=== PATIENT | female | born 2000 | race Two or more races ===

== ENCOUNTER 2022-07-13 13:29 | Emergency (ER) | payer SELFPAY ==
[2022-07-13] MEDS ORDERED: Ondansetron 4 MG/2 ML SDV IVPUSH ONE (14:23)
[2022-07-13] MEDS ORDERED: Sodium Chloride 0.9% 1,000 ML IV ONE (14:23)
[2022-07-13] MEDS ORDERED: Ketorolac 30 MG/ML SDV IVPUSH ONE (14:23)
[2022-07-13 15:13] LABS: CARBON DIOXIDE,CO2 27.9 mmol/L (21.0-32.0); POTASSIUM,K 3.8 mmol/L (3.5-5.1)
== END 2022-07-13 17:59 | disposition home or self-care (01) ==
LOC: MW.ED 13:29
DX: N30.00 Acute cystitis without hematuria (principal)
CPT/HCPCS: 36415; 76856; 80053; 81001; 81025; 85025; 87086; 96361; 96374; 96375; 99284; J1885; J2405; J7030

== ENCOUNTER 2024-02-29 04:32 | Inpatient (IN) | payer MEDICAID ==
[2024-02-29] MEDS ORDERED: Methylergonovine 0.2 MG/1 ML Amp IM PRN ×2 (09:09→18:50)
[2024-02-29] MEDS ORDERED: Lidocaine 1% 50 ML MDV INJECT PRN (09:09)
[2024-02-29] MEDS ORDERED: Butorphanol 2 MG/ML SDV IVPUSH PRN (09:09)
[2024-02-29] MEDS ORDERED: Sodium Chloride 0.9% 10 ML Syringe FLUSH PRN (09:09)
[2024-02-29] MEDS ORDERED: Carboprost Tromethamine 250 MCG/1 mL Vial IM PRN (09:09)
[2024-02-29] MEDS ORDERED: Sodium Chloride 0.9% 2.5 ML Syringe FLUSH PRN (09:09)
[2024-02-29] MEDS ORDERED: Misoprostol 200 MCG Tab PO PRN (09:09)
[2024-02-29] MEDS ORDERED: Tranexamic Acid IN NACL,ISO-OS 1,000 MG in Premix Bag 1 BAG IV PRN ×2 (09:09→18:50)
[2024-02-29] MEDS ORDERED: Water For Irrigation,Sterile 1,000 ML Container IRR PRN (09:09)
[2024-02-29] MEDS ORDERED: Sodium Chloride 0.9% 20 ML SDV IV PRN (09:09)
[2024-02-29] MEDS ORDERED: Oxytocin/0.9 % Sodium Chloride 30 UNIT/500 ML BAG IV SCH (09:15)
[2024-02-29] MEDS: Lactated Ringers 1,000 ML IV SCH (09:35)
[2024-02-29] MEDS ORDERED: Phenylephrine HCl In 0.9% NaCl 1 MG/10 ML Syringe ONE (10:10)
[2024-02-29] MEDS ORDERED: Bupivacaine 0.5% 10 ML SDV ONE (10:10)
[2024-02-29 10:11] LABS: HEMATOCRIT 32.3 % (37.0-47.0); MEAN CORPUSCULAR HEMOGLOBIN 30.1 pg (28.0-32.0); MEAN CORPUSCULAR HGB CONC 34.1 g/dL (32.0-36.0); MEAN CORPUSCULAR VOLUME 88.5 fL (83.0-99.0); MEAN PLATELET VOLUME 11.8 fL (9.4-12.3); PLATELET COUNT,PLT 197 K/uL (150-400); RED BLOOD CELL COUNT 3.65 M/uL (4.10-5.30); WHITE BLOOD CELL COUNT,WBC 9.02 K/uL (3.9-11.3)
[2024-02-29] MEDS: Ropivacaine HCl/PF 200 ML ONE (10:25)
[2024-02-29] MEDS: Ropivacaine HCl/PF 400 MG in Premix Bag 1 BAG EPIDUR SCH (10:25)
[2024-02-29] MEDS ORDERED: ePHEDrine 50 MG/ML SDV IM PRN (10:32)
[2024-02-29] MEDS ORDERED: Bupivacaine 0.5% 10 ML SDV INJECT ONE (10:32)
[2024-02-29] MEDS ORDERED: ePHEDrine 50 MG/ML SDV IVPUSH PRN ×2 (10:32)
[2024-02-29] MEDS ORDERED: Phenylephrine HCl In 0.9% NaCl 1 MG/10 ML Syringe IVPUSH PRN (10:32)
[2024-02-29] MEDS: Ondansetron 4 MG/2 ML SDV IVPUSH PRN (15:07)
[2024-02-29] MEDS: Oxytocin/0.9 % Sodium Chloride 30 UNIT/500 ML BAG IV SCH (17:37)
[2024-02-29] MEDS ORDERED: Docusate Sodium 100 MG Cap PO PRN (18:50)
[2024-02-29] MEDS ORDERED: Lanolin 100% Cream 7 GM Tube TOP PRN (18:50)
[2024-02-29] MEDS ORDERED: Misoprostol 200 MCG Tab RECTAL PRN (18:50)
[2024-02-29 19:42] LABS: PH,UMBILICAL ARTERIAL 7.228 (7.18-7.38)
[2024-02-29 19:43] LABS: PH,UMBILICAL VENOUS 7.33 (7.25-7.45)
[2024-02-29] MEDS: Witch Hazel Medicated Pads 40/Jar TOP PRN (21:01)
[2024-02-29] MEDS: Benzocaine/Menthol 20%-0.5% Spray 78 GM Cannister TOP PRN (21:09)
[2024-02-29] MEDS: Ibuprofen 800 MG Tab PO PRN (21:30)
[2024-02-29] MEDS: Acetaminophen 500 MG Tab PO PRN (21:30)
[2024-03-01 05:47] LABS: HEMATOCRIT 30.7 % (37.0-47.0); HEMOGLOBIN 10.4 g/dL (12.0-16.0)
[2024-03-01] MEDS: Prenatal Multivitamin with Calcium/Folic Acid/Iron Tab PO SCH (14:56)
== END 2024-03-01 21:10 | disposition home or self-care (01) | DRG 807 ==
LOC: MW.OBCHECK 04:32 → MW.OB 09:09 → OBSVTOIN 18:00 → MW.OB 21:30
PROVIDERS: ADMIT Obstetrics & Gynecology; ATTEND Obstetrics & Gynecology
PROC: 10E0XZZ Delivery of Products of Conception, External Approach (ICD-10-PCS; principal; 2024-02-29)
PROC: 10907ZC Drainage of Amniotic Fluid, Therapeutic from Products of Conception, Via Natural or Artificial Opening (ICD-10-PCS; 2024-02-29)
PROC: 3E0R3BZ Introduction of Anesthetic Agent into Spinal Canal, Percutaneous Approach (ICD-10-PCS; 2024-02-29)
PROC: 00HU33Z Insertion of Infusion Device into Spinal Canal, Percutaneous Approach (ICD-10-PCS; 2024-02-29)
PROC: 0UQG7ZZ Repair Vagina, Via Natural or Artificial Opening (ICD-10-PCS; 2024-02-29)
DX: O48.0 Post-term pregnancy (principal); Z37.0 Single live birth; O71.89 Other specified obstetric trauma; Z3A.39 39 weeks gestation of pregnancy; Z3A.40 40 weeks gestation of pregnancy
CPT/HCPCS: 36415; 51702; 59025; 59409; 82803; 85014; 85018; 85027; 86592; 86850; 86900; 86901; A9270-GY; J0665; J2371; J2405; J2590; J2795; J7120

== ENCOUNTER 2025-04-17 16:56 | Emergency (ER) | payer MEDICAID ==
[2025-04-17 17:23] LABS: BASOPHILS ABSOLUTE AUTO 0.01 K/uL (0.00-0.20); BASOPHILS PERCENT AUTO 0.2 % (0.0-1.0); EOSINOPHILS ABSOLUTE AUTO 0.02 K/uL (0.00-0.45); EOSINOPHILS PERCENT AUTO 0.3 % (0.0-6.0); IMMATURE GRAN ABSOLUTE AUTO 0.01 K/uL (0.00-0.05); IMMATURE GRAN PERCENT AUTO 0.2 % (0.0-0.4); LYMPHOCYTES ABSOLUTE AUTO 1.88 K/uL (1.00-4.80); LYMPHOCYTES PERCENT AUTO 31.2 % (24.0-44.0); MEAN PLATELET VOLUME 11.4 fL (9.4-12.3); MONOCYTES ABSOLUTE AUTO 0.38 K/uL (0.00-0.80); MONOCYTES PERCENT AUTO 6.3 % (0.0-8.0); NEUTROPHILS ABSOLUTE AUTO 3.73 K/uL (1.80-7.70); NEUTROPHILS PERCENT AUTO 61.8 % (41.0-71.0); NRBC ABSOLUTE 0.00 K/uL (0.00-0.02); NRBC PERCENT 0.0 /100WBC (0.0-0.2); PLATELET COUNT,PLT 215 K/uL (150-400); RED BLOOD CELL COUNT 4.56 M/uL (4.10-5.30); WHITE BLOOD CELL COUNT,WBC 6.03 K/uL (3.9-11.3)
[2025-04-17 17:54] LABS: A/G RATIO 0.9 (0.9-1.6); ALANINE AMINOTRANSFERASE,ALT 11 IU/L (14-63); ASPARTATE AMNIOTRANSFERASE,AST 13 IU/L (15-37); BILIRUBIN TOTAL 0.1 mg/dL (0.2-1.0); BLOOD UREA NITROGEN,BUN 10 mg/dL (7.0-18.0); CARBON DIOXIDE,CO2 24.2 mmol/L (21.0-32.0); CHLORIDE,CL 104 mmol/L (98-107); CREATININE 0.7 mg/dL (0.6-1.0); EST CRCL DRUG DOSING (CG) 88.25 mL/min; GLUCOSE RANDOM 99 mg/dL (74-106); POTASSIUM,K 3.6 mmol/L (3.5-5.1); PRO B-TYPE NATRIUR PEPT,BNPPRO 9 pg/mL (0-125); PROTEIN TOTAL,TP 7.8 g/dL (6.4-8.2); SODIUM,NA 139 mmol/L (136-145); TSH ULTRASENSITIVE 1.55 uIU/mL (0.36-3.74)
[2025-04-17 17:59] LABS: ESTIMATED GFR 123 mL/min (>60)
== END 2025-04-17 18:15 | disposition home or self-care (01) ==
LOC: MW.ED 16:56
DX: R07.9 Chest pain, unspecified (principal)
CPT/HCPCS: 36415; 71045; 71045-26; 80053; 83880; 84443; 84484; 85025; 93005; 93010; 99284; 99285